=== PATIENT | female | born 1950 | race Caucasian/White ===

== ENCOUNTER 2018-01-10 06:32 | Day surgery (SDC) | payer MEDICARE, OTHER ==
[~2018-01-10 06:32] MED LIST: ALENDRONATE70 MG PO; ATENOLOL25 MG PO; GLIPIZIDE ER2.5 MG PO; LEVOTHYROXIN150 MC1 PO; LIPITOR10 M1 PO; ZESTRIL/PRINIV2.5 MG PO
[2018-01-10 08:56] VITALS: BP 100/523
== END 2018-01-10 09:05 | disposition home or self-care (01) ==
LOC: ENDO 06:32 → ORM 10:30 → ENDO 10:30
PROVIDERS: ATTEND Internal Medicine Gastroenterology
PROC: 0DBL8ZX Excision of Transverse Colon, Via Natural or Artificial Opening Endoscopic, Diagnostic (ICD-10-PCS; principal; 2018-01-10)
PROC: 0DBE8ZX Excision of Large Intestine, Via Natural or Artificial Opening Endoscopic, Diagnostic (ICD-10-PCS; 2018-01-10)
DX: K57.30 Diverticulosis of large intestine without perforation or abscess without bleeding (principal); K63.5 Polyp of colon; R19.7 Diarrhea, unspecified; K59.00 Constipation, unspecified; K64.4 Residual hemorrhoidal skin tags; K64.8 Other hemorrhoids; I10 Essential (primary) hypertension; E11.9 Type 2 diabetes mellitus without complications; E78.00 Pure hypercholesterolemia, unspecified; E03.9 Hypothyroidism, unspecified